=== PATIENT | male | born 1945 | race Caucasian/White ===

== ENCOUNTER 2022-05-30 12:17 | Inpatient (IN) | payer MEDICARE, BC ==
[2022-05-30 13:07] LABS: ALT (SGPT) 12 U/L (8-55); AST (SGOT) 15 U/L (5-34); Albumin 4.5 g/dL (3.4-4.8); Alkaline Phosphatase 53 U/L (40-110); Anion Gap 14 mmol/L (10-20); BUN (Urea Nitrogen) 14 mg/dL (8.4-25.7); Bilirubin, Total 1.2 mg/dL (0.2-1.2); Calc. Creatinine Clearance 0 mL/min (70-130); Calcium 9.4 mg/dL (7.8-10.44); Carbon Dioxide 23 mmol/L (23-31); Chloride 102 mmol/L (98-107); Estimated GFR 98; Globulin 2.6 g/dL (2.4-3.5); Glucose 135 mg/dL (83-110); Potassium 3.7 mmol/L (3.5-5.1); Protein, Total 7.1 g/dL (5.8-8.1); Sodium 135 mmol/L (136-145)
[2022-05-30 13:17] LABS: #Eosinphils 0.2 thou/uL (0.0-0.7); #Lymphocytes 1.7 thou/uL (1.20-3.40); #Monocytes 0.5 thou/uL (0.11-0.59); #Neutrophils 7.1 thou/uL (1.40-6.50); %Basophils 0.3 % (0.0-1.0); %Eosinophils 1.8 % (0.0-10.0); %Lymphocytes 18.1 % (21.0-51.0); %Monocytes 5.2 % (0.0-10.0); %Neutrophils 74.6 % (42.0-75.0); Hemoglobin 15.3 g/dL (14.0-18.0); Mean Corpuscular HGB CONC 31.9 g/dL (32.0-36.0); Mean Corpuscular Volume 97.3 fl (78.0-98.0); Mean Platelet Volume 6.4 fL (7.4-10.4); Platelet Count 325 10x3/uL (130-400); RBC Distribution Width 12.7 % (11.5-14.5); Red Blood Cell (RBC) Count 4.93 mill/uL (4.70-6.10); White Blood Cell (WBC) Count 9.6 10x3/uL (4.8-10.8)
[2022-05-30 15:32] LABS: Magnesium 1.8 mg/dL (1.6-2.6)
[2022-05-30 15:33] LABS: CK (CPK) 128 U/L (30-200)
[2022-05-30] MEDS ORDERED: Acetaminophen 500 MG TAB ONE (15:38)
[2022-05-30 16:56] LABS: Bilirubin Negative (Negative); Blood, Urine Negative (Negative); Clarity Clear (Clear); Glucose, Urine (Dipstick) Normal (Negative); Ketone, Urine 60 mg/dL (Negative); Leukocyte Negative Leu/uL (Negative); Nitrite Negative (Negative); Protein, Urine (Dipstick) 10 mg/dL (Neg-Trace); Specific Gravity, Urine 1.021 (1.002-1.036); Urobilinogen Normal mg/dL (Less than 2); pH, Urine 5.5 (5.0-9.0)
[2022-05-30] MEDS ORDERED: Ondansetron PF 4 MG/2 ML Vial IVP PRN (18:30)
[2022-05-30] MEDS ORDERED: HumaLOG 300 UNITS/3 ML VIAL SC PRN ×2 (18:30)
[2022-05-30] MEDS ORDERED: Senokot S 8.6-50 MG TAB PO PRN (18:30)
[2022-05-30] MEDS ORDERED: Dextrose 5% in Water 1,000 ML IV PRN (18:30)
[2022-05-30] MEDS ORDERED: Calcium Carbonate 500 MG ChewTAB PO PRN (18:30)
[2022-05-30] MEDS ORDERED: Ondansetron ODT 4 MG TAB PO PRN (18:30)
[2022-05-30] MEDS ORDERED: Dextrose 50% Abboject 50 ML SYRINGE SLOW IVP PRN (18:30)
[2022-05-30 18:56] LABS: Phosphorus 3.7 mg/dL (2.3-4.7)
[2022-05-30] MEDS ORDERED: fentaNYL PF 100 MCG/2 ML SYRINGE ONE ×3 (19:55→22:14)
[2022-05-30] MEDS ORDERED: Phenylephrine 10 MG/ML VIAL ONE (19:56)
[2022-05-30] MEDS ORDERED: Bupivacaine HCl 0.5%/Epinephrine 1:200,000/PF 30 ml Vial ONE (20:01)
[2022-05-30] MEDS ORDERED: Thrombin 5000 UNITS/5 ML VIAL ONE (20:01)
[2022-05-30] MEDS ORDERED: Glycopyrrolate 0.2 MG/ML 5 ML SYRINGE ONE (20:40)
[2022-05-30] MEDS ORDERED: Rocuronium Bromide 10 MG/ML (10ML VIAL) ONE (20:40)
[2022-05-30] MEDS ORDERED: Ondansetron PF 4 MG/2 ML Vial ONE (20:40)
[2022-05-30] MEDS ORDERED: NEOSTIGMINE 3 MG/3 ML SYR 3 MG/3 ML SYRINGE ONE (20:40)
[2022-05-30] MEDS ORDERED: PROPOFOL 200 MG/20 ML VIAL ONE (20:40)
[2022-05-30] MEDS ORDERED: Lidocaine 1% PF 5 ML VIAL ONE (20:40)
[2022-05-30 21:01] LABS: SARS-CoV-2 NAA Rapid Test Not Detected (NotDetected)
[2022-05-30] MEDS ORDERED: Bisacodyl 10 MG SUPP PR PRN (21:46)
[2022-05-30] MEDS ORDERED: diphenhydrAMINE 50 MG/ML VIAL IVP PRN (21:46)
[2022-05-30] MEDS ORDERED: Morphine 2 MG/ML VIAL SLOW IVP PRN (21:46)
[2022-05-30] MEDS ORDERED: HYDROcodone/Acetaminophen 7.5/325 mg Tablet PO PRN (21:46)
[2022-05-30] MEDS ORDERED: Ondansetron HCl/PF 4 MG/2 ML Vial IVP PRN (22:09)
[2022-05-30] MEDS ORDERED: Promethazine HCl 25 MG/ML VIAL IM PRN (22:09)
[2022-05-30] MEDS: Atorvastatin Calcium 20 MG TAB PO SCH (22:24)
[2022-05-30 23:02] VITALS: BMI 23.8
[2022-05-30] MEDS: Sodium Chloride 0.9% 1,000 ML IV SCH (23:35)
[2022-05-31] MEDS: HYDROcodone/Acetaminophen 7.5/325 mg Tablet PO PRN ×3 (01:26→20:24)
[2022-05-31] MEDS: CEFAZOLIN 2 GM in Sodium Chloride 0.9% 100 ML IVPB SCH ×3 (05:10→21:25)
[2022-05-31] MEDS: Tamsulosin HCl 0.4 MG CAP PO SCH (05:10)
[2022-05-31 07:04] LABS: #Eosinphils 0.1 thou/uL (0.0-0.7); #Lymphocytes 1.6 thou/uL (1.20-3.40); #Monocytes 0.6 thou/uL (0.11-0.59); #Neutrophils 5.8 thou/uL (1.40-6.50); %Basophils 0.1 % (0.0-1.0); %Eosinophils 1.3 % (0.0-10.0); %Lymphocytes 19.5 % (21.0-51.0); %Monocytes 7.6 % (0.0-10.0); %Neutrophils 71.5 % (42.0-75.0); Hemoglobin 12.8 g/dL (14.0-18.0); Mean Corpuscular HGB CONC 33.2 g/dL (32.0-36.0); Mean Corpuscular Hemoglobin 32.5 pg (27.0-31.0); Mean Corpuscular Volume 97.9 fl (78.0-98.0); Mean Platelet Volume 6.2 fL (7.4-10.4); Platelet Count 236 10x3/uL (130-400); RBC Distribution Width 12.7 % (11.5-14.5); Red Blood Cell (RBC) Count 3.92 mill/uL (4.70-6.10); White Blood Cell (WBC) Count 8.2 10x3/uL (4.8-10.8)
[2022-05-31 07:19] LABS: Anion Gap 13 mmol/L (10-20); BUN (Urea Nitrogen) 14 mg/dL (8.4-25.7); Calc. Creatinine Clearance 85 mL/min (70-130); Calcium 8.3 mg/dL (7.8-10.44); Carbon Dioxide 23 mmol/L (23-31); Chloride 104 mmol/L (98-107); Estimated GFR 94; Glucose 86 mg/dL (83-110); Magnesium 1.7 mg/dL (1.6-2.6); Potassium 3.3 mmol/L (3.5-5.1); Sodium 137 mmol/L (136-145)
[2022-05-31] MEDS: Amlodipine 10 MG TAB PO SCH (08:38)
[2022-05-31] MEDS: Lisinopril 20 MG TAB PO SCH (08:38)
[2022-05-31] MEDS: Sodium Chloride 0.9% 1,000 ML IV SCH (12:22)
[2022-05-31] MEDS ORDERED: Electrolyte Replacement Protocol 1 EACH FS SCH (17:15)
[2022-05-31] MEDS ORDERED: Chloraseptic Spray 180 ml Bottle PO PRN (17:16)
[2022-05-31] MEDS ORDERED: metFORMIN 500 MG TAB PO SCH (17:30)
[2022-05-31] MEDS: Atorvastatin Calcium 20 MG TAB PO SCH (20:24)
[2022-06-01] MEDS ORDERED: Potassium Chloride 20 MEQ TAB PO SCH (05:00)
[2022-06-01] MEDS: Tamsulosin HCl 0.4 MG CAP PO SCH (05:30)
[2022-06-01] MEDS: metFORMIN 500 MG TAB PO SCH ×2 (08:08→18:29)
[2022-06-01] MEDS: HYDROcodone/Acetaminophen 7.5/325 mg Tablet PO PRN ×2 (08:09→22:25)
[2022-06-01] MEDS: Amlodipine 10 MG TAB PO SCH (08:09)
[2022-06-01] MEDS: Lisinopril 20 MG TAB PO SCH (08:11)
[2022-06-01 08:23] LABS: #Eosinphils 0.1 thou/uL (0.0-0.7); #Lymphocytes 1.7 thou/uL (1.20-3.40); #Monocytes 0.8 thou/uL (0.11-0.59); #Neutrophils 6.2 thou/uL (1.40-6.50); %Basophils 0.2 % (0.0-1.0); %Eosinophils 1.1 % (0.0-10.0); %Neutrophils 70.7 % (42.0-75.0); Hemoglobin 12.5 g/dL (14.0-18.0); Mean Corpuscular HGB CONC 33.4 g/dL (32.0-36.0); Mean Corpuscular Hemoglobin 32.8 pg (27.0-31.0); Mean Corpuscular Volume 98.2 fl (78.0-98.0); Mean Platelet Volume 6.4 fL (7.4-10.4); Platelet Count 225 10x3/uL (130-400); RBC Distribution Width 12.8 % (11.5-14.5); White Blood Cell (WBC) Count 8.7 10x3/uL (4.8-10.8)
[2022-06-01] MEDS ORDERED: Polyethylene Glycol 3350 17 GM Packet PO SCH (08:45)
[2022-06-01 08:46] LABS: Anion Gap 14 mmol/L (10-20); BUN (Urea Nitrogen) 11 mg/dL (8.4-25.7); Calc. Creatinine Clearance 100 mL/min (70-130); Calcium 8.3 mg/dL (7.8-10.44); Carbon Dioxide 20 mmol/L (23-31); Chloride 106 mmol/L (98-107); Estimated GFR 99; Glucose 131 mg/dL (83-110); Potassium 3.8 mmol/L (3.5-5.1); Sodium 136 mmol/L (136-145)
[2022-06-01] MEDS: Acetaminophen 325 MG TAB PO PRN ×2 (15:02→21:00)
[2022-06-01] MEDS: Atorvastatin Calcium 20 MG TAB PO SCH (21:00)
[2022-06-02] MEDS: Tamsulosin HCl 0.4 MG CAP PO SCH (06:29)
[2022-06-02] MEDS: Amlodipine 10 MG TAB PO SCH (06:33)
[2022-06-02] MEDS: Lisinopril 20 MG TAB PO SCH (06:34)
[2022-06-02 07:13] LABS: #Eosinphils 0.2 thou/uL (0.0-0.7); #Lymphocytes 1.5 thou/uL (1.20-3.40); #Monocytes 0.7 thou/uL (0.11-0.59); #Neutrophils 5.8 thou/uL (1.40-6.50); %Basophils 0.1 % (0.0-1.0); %Lymphocytes 17.7 % (21.0-51.0); %Monocytes 9.1 % (0.0-10.0); %Neutrophils 71.1 % (42.0-75.0); Hemoglobin 12.2 g/dL (14.0-18.0); Mean Corpuscular HGB CONC 33.4 g/dL (32.0-36.0); Mean Corpuscular Hemoglobin 32.8 pg (27.0-31.0); Mean Corpuscular Volume 98.1 fl (78.0-98.0); Mean Platelet Volume 6.1 fL (7.4-10.4); Platelet Count 217 10x3/uL (130-400); RBC Distribution Width 12.5 % (11.5-14.5); Red Blood Cell (RBC) Count 3.73 mill/uL (4.70-6.10); White Blood Cell (WBC) Count 8.2 10x3/uL (4.8-10.8)
[2022-06-02 07:30] LABS: Anion Gap 11 mmol/L (10-20); BUN (Urea Nitrogen) 8 mg/dL (8.4-25.7); Calc. Creatinine Clearance 102 mL/min (70-130); Calcium 8.3 mg/dL (7.8-10.44); Carbon Dioxide 24 mmol/L (23-31); Chloride 105 mmol/L (98-107); Estimated GFR 99; Glucose 109 mg/dL (83-110); Potassium 3.7 mmol/L (3.5-5.1); Sodium 136 mmol/L (136-145)
[2022-06-02] MEDS: metFORMIN 500 MG TAB PO SCH ×2 (08:29→18:18)
[2022-06-02] MEDS: Polyethylene Glycol 3350 17 GM Packet PO SCH (08:34)
[2022-06-02] MEDS ORDERED: Cyanocobalamin (Vitamin B-12) 1,000 MCG TAB PO SCH (21:00)
[2022-06-02] MEDS ORDERED: Folic Acid 1 MG TAB PO SCH (21:00)
[2022-06-02] MEDS: Atorvastatin Calcium 20 MG TAB PO SCH (21:11)
[2022-06-02] MEDS: Senokot S 8.6-50 MG TAB PO SCH (21:11)
[2022-06-02] MEDS: HYDROcodone/Acetaminophen 7.5/325 mg Tablet PO PRN (22:51)
[2022-06-03] MEDS: Tamsulosin HCl 0.4 MG CAP PO SCH (05:50)
[2022-06-03 07:37] LABS: Anion Gap 12 mmol/L (10-20); BUN (Urea Nitrogen) 9 mg/dL (8.4-25.7); Calc. Creatinine Clearance 107 mL/min (70-130); Calcium 8.5 mg/dL (7.8-10.44); Carbon Dioxide 25 mmol/L (23-31); Chloride 101 mmol/L (98-107); Estimated GFR 101; Glucose 124 mg/dL (83-110); Potassium 3.6 mmol/L (3.5-5.1); Sodium 134 mmol/L (136-145)
[2022-06-03 07:38] LABS: #Eosinphils 0.2 thou/uL (0.0-0.7); #Lymphocytes 1.3 thou/uL (1.20-3.40); #Monocytes 0.7 thou/uL (0.11-0.59); #Neutrophils 5.9 thou/uL (1.40-6.50); %Basophils 0.1 % (0.0-1.0); %Eosinophils 1.9 % (0.0-10.0); %Lymphocytes 16.6 % (21.0-51.0); %Monocytes 8.1 % (0.0-10.0); %Neutrophils 73.3 % (42.0-75.0); Hemoglobin 12.1 g/dL (14.0-18.0); Mean Corpuscular HGB CONC 33.4 g/dL (32.0-36.0); Mean Corpuscular Hemoglobin 32.6 pg (27.0-31.0); Mean Corpuscular Volume 97.6 fl (78.0-98.0); Mean Platelet Volume 6.6 fL (7.4-10.4); Platelet Count 221 10x3/uL (130-400); RBC Distribution Width 12.3 % (11.5-14.5); White Blood Cell (WBC) Count 8.1 10x3/uL (4.8-10.8)
[2022-06-03] MEDS: Senokot S 8.6-50 MG TAB PO SCH (08:56)
[2022-06-03] MEDS: metFORMIN 500 MG TAB PO SCH (08:57)
[2022-06-03] MEDS: Amlodipine 10 MG TAB PO SCH (08:57)
[2022-06-03] MEDS: Polyethylene Glycol 3350 17 GM Packet PO SCH (08:58)
[2022-06-03] MEDS: Lisinopril 20 MG TAB PO SCH (09:01)
[2022-06-03] MEDS: HYDROcodone/Acetaminophen 7.5/325 mg Tablet PO PRN (12:40)
[2022-06-03 16:09] VITALS: BP 122/72; TEMP 98.8
== END 2022-06-03 17:06 | DRG 519 ==
LOC: ERS 12:17 → T4-A 18:09
PROVIDERS: ADMIT Hospitalist; ATTEND Internal Medicine
PROC: 01N80ZZ Release Thoracic Nerve, Open Approach (ICD-10-PCS; principal; 2022-05-30)
PROC: 0RB90ZZ Excision of Thoracic Vertebral Disc, Open Approach (ICD-10-PCS; 2022-05-30)
DX: M51.04 Intervertebral disc disorders with myelopathy, thoracic region (principal); G83.4 Cauda equina syndrome; Z66 Do not resuscitate; E87.6 Hypokalemia; E83.42 Hypomagnesemia; E78.5 Hyperlipidemia, unspecified; R33.9 Retention of urine, unspecified; E11.9 Type 2 diabetes mellitus without complications; I10 Essential (primary) hypertension; Z87.891 Personal history of nicotine dependence; Z79.82 Long term (current) use of aspirin; Z79.84 Long term (current) use of oral hypoglycemic drugs
CPT/HCPCS: 36415; 36416; 51701; 71045; 72131; 72146; 72148; 80048; 80053; 81003; 82550; 83735; 84100; 84484; 85025; 86140; 93005; J1815; J2272; J2370; J2405; J2704; J3490; J7050; U0002